=== PATIENT | male | born 1965 | race Caucasian/White ===

== ENCOUNTER 2016-10-18 08:28 | Emergency (ER) | payer SELFPAY ==
[~2016-10-18] VITALS: Ht 170.2 cm; Wt 97.5 kg
[~2016-10-18 08:28] MED LIST: LISINOPRIL 10MG10 MG PO; MEDROL 4MG. DOSE4 MG PO; MOTRIN 400MG.400 MG PO; PERCOCET1 TAB PO
[2016-10-18] MEDS ORDERED: HCTZ/LISINOPRIL1 TA3 PO (08:41)
[2016-10-18] MEDS ORDERED: COLCHICINE0.6 M4 PO (09:11)
[2016-10-18] MEDS ORDERED: AUGMENTIN 875-1 EACH PO (09:11)
[2016-10-18] MEDS ORDERED: INDOCIN25 MG PO (09:11)
--- NOTE | 2016-10-18 09:11 | Emergency Room Report ---
History of Present Illness Time Seen by MD [id number] Presenting Problem in Triage Pt arrived:Walked Presenting Problem:C/O PAIN IN R WRIST X2 DAYS. PT STATES UNABLE TO USE WRIST R/ T PAIN. PT STATES HAS HX OF GOUT. SKIN IS WARM TO TOUCH IN R WRIST AREA. Onset of symptoms date/time:10/16/16/ or onset unknown for:MEDICAL HX UNKNOWN Treatment Prior to Arrival: [place] [employer] Provided by: Sepsis Risk Assessment: Temp: 97.8 B/P: 210/128 MAP: 155 Pulse: 75 Resp: 18 Recent fever? N Clinical Suspician of Infection? N Mental Status: 1 - Regular (Normal Baseline) Sepsis Risk:Low Sepsis Risk Have you (or family members/close friends) recently traveled outside the [place]? N If Yes, where/when: Have you had exposure to infectious disease within the past month? N TB? Other? Specify: 50 years old white male with history of hypertension and gout. He uses his albuterol intermittently. He has been working on a barn frequently when he developed RIGHT wrist pain. He says it's my gout. Developed pain in the swelling on the RIGHT wrist since yesterday. 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 There are no red demarco streaks, or pain in the arm pit. The patient denies a history of chills. Source patient, RN notes reviewed, family ALLERGIES Coded Allergies: No Known Allergies (07/16/16) Home Medications Reported Medications LISINOPRIL/HYDROCHLOROTHIAZIDE (Lisinopril-Hctz 20-12.5 MG Tab) 1 TAB PO DAILY #60 History Medical History General CAD? No Angina: No [place]: No Hypertension? Yes Hyperlipidemia? No CHF? No DVT? No PE? No COPD? No Asthma? No Anemia? No GERD? No Gastric ulcers? No GI Bleed? No Hernia? No Thyroid Problems? Yes Hypothyroidism? No CVA? No Seizures? No Diabetes? No Renal Insuffiency? No End Stage Renal Disease? No UTI? No Stones? No BPH? No GB Disease: No Nephritic Syndrome? No Asplenia? No Hepatitis? No Sickle Cell Disease? No Arthritis? No Migraines? No Cataracts? No Glaucoma? No MRSA? No HIV? No TB? No Anxiety? No Depression? No Cancer? No More? Yes Additional hx: GOUT Immunization Hx DT/Tetanus 1-4 Years Ago Surgical Hx Previous Surgery?Y APPENDECTOMY TONSILS Social History Smoking Hx Smoker: Current Every Day Smoker Tobacco: Yes Type Cigarettes Packs/day < 1 Pack Alcohol Alcohol: No Review of Systems All Other Systems Reviewed and Negative Constitutional no symptoms reported Eyes no symptoms reported ENT no symptoms reported. Respiratory no symptoms reported Cardiovascular no symptoms reported Gastrointestinal no symptoms reported Genitourinary no symptoms reported. Musculoskeletal see HPI Skin see HPI Psychiatric/Neurological no symptoms reported Physical Exam Vital Signs Vital Signs Date Time Temp Pulse Resp B/P Pulse O2 O2 Flow FiO2 Ox Delivery Rate 10/18 919 74 18 191/94 98 10/18 0912 18 10/18 0834 97.8 75 18 210/128 97 the patirnt took his bp medicine this morning. ([facility] AMBROSIO,[facility]) - WBC >12,000 or <4,000 or 10% bands? 2 or more SIRS Criteria Met? B/P:210/128 MAP:155 Creatinine >2.0? UA output<0.5ml/kg/hr for 2 hrs? Platelet count >100,000? Lactate >2.0mmol/1? INR >1.2 or PTT > than 60 sec? Evidence of Organ Dysfunction? Provider documented clinical suspician of infection? N Sepsis Criteria Count: 0 Sepsis Risk: Low Sepsis Risk General Appearance normal appearance, WD/WN Eye Exam - bilateral eye normal exam, bilateral eye PERRL, bilateral eye EOMI Neck normal inspection, non-tender, supple, full range of motion Respiratory Status Yes: trachea midline, chest symmetrical, non tender chest. No: respiratory distress. Lung Sounds bilateral: normal breath sounds, lungs clear. 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 No Results/Orders Laboratory Tests 10/18/16917: Sodium 137, Potassium 4.1, Chloride 101, Carbon Dioxide 31, BUN 13, Creatinine 1.2, Estimated Creat Clear 99, Estimated GFR (MDRD) 64, Glucose 108 H, Uric Acid 8.2 H, Calcium 9.6, WBC 11.5 H, RBC 5.25, Hgb 16.3, Hct 44.5, MCV 84.7, RDW 13.4, Plt Count 224, MPV 6.0 L, Gran % 67.2, Gran # 7.7, Lymphocytes % 23.6 , Monocytes % 5.9, Eosinophils % 2.9, Basophils % 0.6, Lymphocytes # 2.7, Monocytes # 0.7, Eosinophils # 0.3, Basophils # 0.1, PUBS MCHC 36.5 H, MCH 30.9 Current Medication Orders Sig/Rik Start time Last Medication Dose Route Stop Time Status Admin Sodium Chloride 10 ML PRN PRN 10/18 929 AC IV 10/19 915 Ceftriaxone Sodium 1 GM ONCE ONE 10/18 914 AC 10/18 Sodium Chloride 50 ML IV 10/18 Colchicine 1.2 MG ONCE ONE 10/18 914 DCr 10/18 PO 10/18 Ketorolac 30 MG ONCE ONE 10/18 914 DC 10/18 Tromethamine IV 10/18 Sodium Chloride 50 ML .STK-MED ONE 10/18 906 DC IV Ceftriaxone Sodium 0 .STK-MED ONE 10/18 905 DC IV Ketorolac 0 .STK-MED ONE 10/18 902 DC Tromethamine .ROUTE Orders Procedure Date/time Status IV SALINE LOCK 10/18 915 Active URIC ACID 10/18 912 Complete CBC WITH AUTO DIFF 10/18 912 Complete BASIC METABOLIC PROFILE 10/18 912 Complete Departure Departure Time of Disposition 906 Disposition DC Home or Self Care(routine) Clinical Impression Primary Impression: Acute gouty arthritis Secondary Impressions: Dog bite Condition STABLE Referrals [facility] Additional Instructions I had an extensive discussion with the patient in the presence of nurse. That this was a possibility off of a deep-seated infection due to dog bites. He will be treated for acute monoarthritis and dog bite. He has to rest the joint and observe for fever blood streaks and generalized weakness. If he develops vomiting unable to take his antibiotics and medication he needs to return to the ED for admission. He verbalizes understanding of the discharge plan. Discharge Counseling Counseled pt/family regarding diagnosis, test results, medications/RX, home care, follow up needs Prescriptions Current Visit Scripts Colchicine 0.6 MG PO DAILY #7 TAB Indomethacin (Indocin) 25 MG PO Q8HP PRN pain #21 CAP Amoxicillin/Potassium Clav (Augmentin 875-125 Tablet) 1 EACH PO Q12 #20 TAB ED Critical Care Critical Care No If Critical Care minutes are documented, the time involved in the performance of seperately reportable procedures was not counted toward critical care time documented. I directly delivered medical care to this critically ill and/or injured patient. Timely evaluation and treatment was necessary to address the significant organ system(s) dysfunction present in this patient. at 0909
[2016-10-18 09:31] LABS: HEMOGLOBIN 16.3 g/dL (14.1-18.0); LYMPH # 2.7 K/mm3 (0.7-4.5); LYMPH % 23.6 % (10-50)
[2016-10-18 10:00] VITALS: BP 191/94
== END 2016-10-18 10:00 | disposition home or self-care (01) ==
LOC: ER 08:28
PROVIDERS: Emergency Medicine
DX: M10.9 Gout, unspecified (principal); S51.831A Puncture wound without foreign body of right forearm, initial encounter; W54.0XXA Bitten by dog, initial encounter; Y92.009 Unspecified place in unspecified non-institutional (private) residence as the place of occurrence of the external cause; I10 Essential (primary) hypertension; Z72.0 Tobacco use